=== PATIENT | male | born 1970 | race Caucasian/White ===

== ENCOUNTER 2017-04-08 12:19 | Emergency (ER) | payer MEDICAID ==
[2017-04-08 12:25] VITALS: TEMP 99.1
--- NOTE | 2017-04-08 14:25 | EDPHY ---
H & P Time Seen by Provider: 04/08/17 13:28 HPI/ROS: 9 days prior to arrival this patient tripped and fell over boxes in his room in the middle night getting up to go to the bathroom landing on outstretched left hand injuring his left index finger-dominant hand with deformity and pain. Over the past 3 days he has developed some numbness and tingling the fingers that finally prompted him to come in for evaluation. He denies any other injuries from the fall. ROS: Neuro: Again numbness to the affected finger. Cardiovascular: Pallor to the affected finger over the past 2-3 days Musculoskeletal: He is unable to flex the affected finger or extended. No other injuries. 5 point ROS is otherwise negative Past Medical/Surgical History: Alcohol abuse Smoking Status: Current every day smoker Physical Exam: Physical Exam Vital signs are normal. General: No acute distress HEENT: No alcohol halitosis at this time. Atraumatic. Eyes: Pupils equal and react to light. Extraocular motions are intact. Lungs: No respiratory distress. Cardiac: There is pallor to the affected finger beyond the PIP joint with delayed capillary refill. Skin: No lacerations or abrasions in the affected finger Neuro: Alert and oriented x3 with light touch sensory deficits to the index finger. He has loss of 2 point discrimination to the ulnar aspect of the distal phalanx but is intact on the radial aspect. Musculoskeletal: Patient has obvious deformity to the left 2nd finger. It is and mild hyper extension at the PIP joint. There is mild malrotation when the fingers viewed on end. He is unable to flex or extend the affected finger. He maintains mild mobility at the MP joint. Initial differential diagnosis: Fracture versus dislocation versus fracture and dislocation. Constitutional: Initial Vital Signs Temperature (C) 37.3 C 04/08/17 12:22 Heart Rate 77 04/08/17 12:22 Respiratory Rate 16 04/08/17 12:22 Blood Pressure 133/88 H 04/08/17 12:22 O2 Sat (%) 93 04/08/17 12:22 O2 Delivery Mode Room Air Allergies/Adverse Reactions: No Known Allergies Allergy (Unverified 02/23/15 14:28) Home Medications: Medication Instructions Recorded NK [No Known Home Meds] 03/23/16 MDM/Departure - MDM Imaging Results: Imaging Impressions Finger X-Ray 04/08/17 12:31 Impression: 1. Posterior dislocation of the left second digit at the PIP joint involving the middle phalanx. 2. Small chip fracture suspected adjacent to the base of the second middle phalanx. Procedures: Digital block: After verbal consent, using a 50 50 mix of 0.5% Marcaine 2% plain lidocaine, 27 gauge needle, chlorhexidine scrub under sterile conditions- 3 injections were administered to the base of the affected finger, 8 mL with good effect. Patient tolerated this well. There were no complications. Close reduction attempt: After verbal consent using hyper extension traction-3 attempts I am unable to reduce the patient's finger. Patient tolerated the attempts well. No complications. ED Course/Re-evaluation: I viewed the x-rays that were already read by the radiologist at the time of my viewing.-posterior/dorsal dislocation the middle phalanx with small chip fracture Discussion: Patient with finger dislocation fracture with delayed presentation with evidence of some neurovascular compromise the affected finger with pallor and loss of light touch sensation to the distal phalanx. Because of this presentation I spoke with Dr. Lyons, hand specialist on-call who will see the patient today in his office. Patient is instructed to remain NPO will see Dr. Lyons in his office for possible operative intervention. - Depart Disposition: Home, Routine, Self-Care Clinical Impression: Sensory deficit present Dislocation, finger closed Qualifiers: Encounter type: initial encounter Qualified Code(s): S63.259A - Unspecified dislocation of unspecified finger, initial encounter Finger fracture, left Qualifiers: Encounter type: initial encounter Finger: index finger Fracture type: closed Phalanx: middle Fracture alignment: nondisplaced Qualified Code(s): S62.651A - Nondisplaced fracture of medial phalanx of left index finger, initial encounter for closed fracture Condition: Good Instructions: Finger Dislocation (ED) Additional Instructions: Diagnoses: 1. Index finger dislocation 2. Sensory deficit to index finger You have less blood flow and a loss of some sensation to the affected finger. Because of this, you need to see the hand specialist today. Plan: Go directly to Dr. Lyons office-hand specialist for further evaluation. Here in the emergency department he received a digital block surge entire finger is numb and should be for another 2-6 hours. Nothing to eat or drink. You may have surgery today. Referrals: NONE *PRIMARY CARE P,. [Primary Care Provider] - As per Instructions Gigi Lyons MD [Medical Doctor] - As per Instructions
[2017-04-08 14:35] VITALS: BP 132/94; PULSE 70; RESP 18; O2SAT 96
== END 2017-04-08 14:36 | disposition home or self-care (01) ==
LOC: CED 12:19
PROC: 0RSXXZZ Reposition Left Finger Phalangeal Joint, External Approach (ICD-10-PCS; principal; 2017-04-08)
DX: S63.281A Dislocation of proximal interphalangeal joint of left index finger, initial encounter (principal); S62.651A Nondisplaced fracture of middle phalanx of left index finger, initial encounter for closed fracture; F17.200 Nicotine dependence, unspecified, uncomplicated; W01.0XXA Fall on same level from slipping, tripping and stumbling without subsequent striking against object, initial encounter
CPT/HCPCS: 73140-PO; L3925